=== PATIENT | female | born 1965 | race Hispanic/Latino ===

== ENCOUNTER 2022-12-22 07:00 | Outpatient (CLI) | payer OTHER | END 2022-12-22 07:01 | disposition home or self-care (01) | LOC: BICULT 07:00 → EDSTATUS 07:15 | PROVIDERS: ATTEND Family Medicine | DX: E11.9 Type 2 diabetes mellitus without complications (principal); Z90.49 Acquired absence of other specified parts of digestive tract | CPT/HCPCS: 76700 ==